=== PATIENT | female | born 1960 | race Caucasian/White ===

== ENCOUNTER 2017-09-12 14:13 | Outpatient (CLI) | payer MEDICAID | END 2017-09-12 14:14 | disposition critical access hospital (66) | LOC: EMS 14:13 | PROVIDERS: ATTEND Surgery | DX: R10.9 Unspecified abdominal pain (principal) | CPT/HCPCS: A0425; A0427 ==

== ENCOUNTER 2017-09-12 14:40 | Emergency (ER) | payer MEDICAID ==
[2017-09-12] MEDS ORDERED: SODIUM CHLORIDE 0.9% 1,000 ML IV ONE (14:51)
[2017-09-12] MEDS ORDERED: KETOROLAC 60 MG/2 ML VIAL IVP STA (14:51)
[2017-09-12] MEDS ORDERED: KETOROLAC 30 MG/ML VIAL ONE (15:08)
--- NOTE | 2017-09-12 15:08 | ED Physician Documentation ---
History of Present Illness - Stated complaint Stated Complaint: LT FLANK PAIN - Additonal information Additional information: hx from pt 57 f hx renal colic recent hematuria passed one stone now acute l flank to R groin pain severe pain diaphoretic given fentanyl by EM with some relief no fever denies preg also hx ovarian cysts Review of Systems Constitutional: denies: Fever Cardiac: denies: Chest pain / pressure GI: reports: Abdominal Pain : reports: Hematuria. denies: Now EGA Musculoskeletal: reports: Back pain Immunocompromised: denies: Immunocompromised PD PAST MEDICAL HISTORY - Present Medications Home Medications: Ambulatory Orders Medication Instructions Recorded Confirmed Citalopram [CeleXA] 1 tab PO DAILY 09/12/17 09/12/17 Estrogens,Esterified [Menest] 1 tab PO DAILY 09/12/17 09/12/17 Progesterone,Micronized 1 cap PO DAILY 09/12/17 09/12/17 [Progesterone] - Allergies Allergies/Adverse Reactions: Allergies Allergy/AdvReac Type Severity Reaction Status Date / Time Penicillins Allergy Anaphylaxis Verified 09/12/17 14:59 Sulfa (Sulfonamide Allergy Anaphylaxis Verified 09/12/17 14:59 Antibiotics) acetaminophen [From Vicodin] AdvReac Unknown Verified 09/12/17 14:59 celecoxib [From Celebrex] AdvReac Unknown Verified 09/12/17 15:01 codeine AdvReac Unknown Verified 09/12/17 15:01 hydrocodone [From Vicodin] AdvReac Unknown Verified 09/12/17 14:59 meperidine [From Demerol] AdvReac Unknown Verified 09/12/17 15:01 PD ED PE NORMAL - Vitals Vital signs reviewed: Yes - Neck Neck: Supple, no meningeal sign - Cardiac Cardiac: RRR - Respiratory Respiratory: No respiratory distress, Clear bilaterally - Abdomen Abdomen: Soft, Non tender - Back Back: No: No CVA TTP (mild left) - Derm Derm: Normal color - Neuro Neuro: Alert and oriented X 3 Results - Vitals Vitals: Vital Signs - 24 hr 09/12/17 09/12/17 14:56 16:49 Temperature 36.1 C L Heart Rate 68 69 Respiratory 16 16 Rate Blood Pressure 152/86 H 110/63 O2 Saturation 96 99 Oxygen O2 Source Room air - Labs Labs: Laboratory Tests 09/12/17 16:20 Urine Color YELLOW Urine Clarity CLEAR Urine pH 7.0 Ur Specific [place] 1.020 Urine Protein NEGATIVE Urine Glucose (UA) NEGATIVE Urine Ketones >=80 H Urine Occult Blood LARGE H Urine Nitrite NEGATIVE Urine Bilirubin NEGATIVE Urine Urobilinogen 0.2 (NORMAL) Ur Leukocyte Esterase NEGATIVE Urine RBC TNTC H Urine WBC 0-3 Ur Squamous Epith Cells FEW Squamous Urine Bacteria None Seen Urine Mucus Few Strands Ur Microscopic Review INDICATED Urine Culture Comments NOT INDICATED - Rads (name of study) CT [facility] Radiology: See rad report (3 mm distal left ureteral stone, other rneal stones up to 6 mm) PD MEDICAL DECISION MAKING - ED course ED course: much better with toradol Departure - Departure Disposition: Home, Self Care Clinical Impression: Renal colic Condition: Good Instructions: ED Stone Renal W Colic Comments: You have a 3 mm kidney stone in the left ureter - this is small enough to pass on its own The urine sample showed blood but no infection Recommend motrin for mild pain and percocet for severe pain (hopefully won't be needed at all since the stone may have passed in the ER) Drink plenty of fluids Filter the urine so you will know when the stones passes - if you have not had the kidney stones tested to see if they are oxalate or calcium stones, please save the s tone for your PMD to send to the lab for testing - based on the result might be able to make diet changes to prevent forming new stones. In the mean time, you still have more stones up in the kidney - up to 6 mm in size - they are not causing symptoms now but might in the future Forms: Activity restrictions
--- NOTE | 2017-09-12 15:50 | CT Preliminary Report ---
Exam: CT ABDOMEN/PELVIS W/O IMPRESSION: 1. Small distal left ureteral stone with mild associated findings. 2. Nonobstructing right renal calculi. 3. Other chronic or incidental findings. [facility] SITE ID: [id number]
--- NOTE | 2017-09-12 15:52 | CT Report ---
EXAM: CT ABDOMEN AND PELVIS (CT KUB) EXAM DATE: 09/12/2017 03:29 PM. CLINICAL HISTORY: Flank pain, hematuria. COMPARISONS: None. TECHNIQUE: Routine axial helical CT imaging was performed through the abdomen and pelvis without IV c ontrast. Reconstructions: Coronal and sagittal. In accordance with CT protocol optimization, one or more of the following dose reduction techniques w ere utilized for this exam: automated exposure control, adjustment of mA and/or KV based on patient s ize, or use of iterative reconstructive technique. FINDINGS: Lung Bases: Minimal atelectasis anteriorly. Otherwise clear. No effusion. Right Kidney/Ureter: Nonobstructive 6 mm upper pole stone. At least 3 additional tiny nonobstructing calcifications in the mid and lower kidney. Otherwise unremarkable. No ureteral stone or hydronephros is. Left Kidney/Ureter: Distal ureteral stone almost at the UVJ measuring about 3 mm, with mild hydrouret er and minimal pelvicaliectasis. Perinephric fat stranding. Otherwise unremarkable. Other Solid Organs: Noncontrast images of the solid organs are grossly unremarkable. Gallbladder/Bile Ducts: Unremarkable. Peritoneal Cavity: No free fluid, free air, or lymphadenopathy. No bowel dilation. Normal appendix. Pelvic Organs: Unremarkable urinary bladder. Lobulated fibroid uterus. Vasculature: Unremarkable. Other: Bilateral spondylolysis of L5. No listhesis. IMPRESSION: 1. Small distal left ureteral stone with mild associated findings. 2. Nonobstructing right renal calculi. 3. Other chronic or incidental findings. [facility] Referring Provider Line: [phone] SITE ID: [id number]
[2017-09-12 16:32] LABS: BILIRUBIN,URINE NEGATIVE (NEGATIVE); UA w/ MICROSCOPIC CHARGE YES
[2017-09-12 16:41] LABS: UR CULTURE IF IND NOT INDICATED; WBC,URINE 0-3 /HPF (0-5)
[2017-09-12 16:50] VITALS: BP 110/63
== END 2017-09-12 18:30 | disposition home or self-care (01) ==
LOC: EDUNIT# → ED 14:40
DX: N20.1 Calculus of ureter (principal)
CPT/HCPCS: 74176; 81001; 81003; 87086; 96374; 99283; 99284

== ENCOUNTER 2019-05-19 08:11 | Outpatient (CLI) | payer BC ==
--- NOTE | 2019-05-19 09:06 | Mammography Report ---
Reason: SCREENING MAMMO Procedure Date: 05/19/2019 Accession Number: [id number] / [id number] Procedure: TAE - Screening Mammo w/Reji CPT Code: FULL RESULT: EXAM: Screening Mammo w/Reji DATE: 05/19/2019 8:57 AM CLINICAL HISTORY: Screening encounter. TECHNIQUE: (B) - Bilateral CC and MLO views were obtained. COMPARISON: 01/30/2015. PARENCHYMAL PATTERN: (F) - The breast(s) demonstrate(s) diffuse fatty replacement. FINDINGS: There are no suspicious masses, calcifications, or areas of distortion. IMPRESSION: Negative examination. BI-RADS category 1. RECOMMENDATION: (ANNUAL) - Recommend routine annual screening mammography. BI-RADS CATEGORY: (1) - Negative. STANDARD QUALIFYING STATEMENTS: 1. This examination was not reviewed with the aid of Computer-Aided Detection (CAD). 2. A negative or benign imaging report should not preclude biopsy if clinically suspicious findings are present. 3. Dense breasts may obscure an underlying neoplasm. 4. This examination was reviewed with the aid of 3D breast imaging (tomosynthesis).
== END 2019-05-19 08:12 | disposition home or self-care (01) ==
LOC: DI 08:11
PROVIDERS: ATTEND Obstetrics & Gynecology
DX: Z00.00 Encounter for general adult medical examination without abnormal findings (principal); Z12.39 Encounter for other screening for malignant neoplasm of breast
CPT/HCPCS: 77063; 77067

== ENCOUNTER 2019-05-19 08:11 | Outpatient (CLI) | payer BC ==
--- NOTE | 2019-05-20 09:12 | DEXA Report ---
Reason: OSTEOPOROSIS SCREENING Procedure Date: 05/19/2019 Accession Number: [id number] / [id number] Procedure: DEX - Dexa Spine and/or Hip CPT Code: FULL RESULT: EXAM: Dexa Spine and/or Hip DATE: 05/19/2019 9:11 AM CLINICAL HISTORY: OSTEOPOROSIS SCREENING TECHNIQUE: Dual energy x-ray absorptiometry (DXA) was performed on a RightSignature System. Regions measured are the AP Spine, femoral neck, and if needed forearm. COMPARISON: None. In accordance with the International Society for Clinical Densitometry (ISCD) guidelines, data from previous exams may be reanalyzed using current recommendations and techniques. This is done to allow a more accurate basis for comparison with the current study. FINDINGS: The data for the lumbar spine is as follows: BMD (g/cm/cm) T-SCORE Z-SCORE REGION L1 0.934 -1.6 -1.2 L2 0.990 -1.8 -1.3 L3 1.111 -0.7 -0.3 L4 1.235 0.3 0.7 TOTAL 1.077 -0.9 -0.4 NOTE: All evaluable vertebrae are used for classification The data for the hip is as follows: BMD (g/cm/cm) T-SCORE Z-SCORE REGION Neck 0.922 -0.8 -0.1 TOTAL 0.947 -0.5 -0.1 NOTE: The femoral neck or total proximal femur, whichever is lowest, is used for classification. IMPRESSION: THE WHO CLASSIFICATION BASED ON THE INTERNATIONAL REFERENCE STANDARD IS NORMAL. THE FRACTURE RISK IS NOT INCREASED. RECOMMENDATION: Patients with diagnosis of osteoporosis or osteopenia should have regular bone mineral density assessment. For those eligible for Medicare, routine testing is allowed once every 2 years. Testing frequency can be increased for patients who have rapidly progressing disease or for those who are receiving medical therapy to restore bone mass. COMMENT: World Health Organization (WHO) definitions for osteoporosis and osteopenia: NORMAL BMD: T-score at -1.0 or higher, fracture risk is low OSTEOPENIA BMD: T-score between -1.0 and -2.5, fracture risk is increased. OSTEOPOROSIS BMD: T-score at -2.5 or lower, fracture risk is high. National Osteoporosis Foundation recommends: 1. Obtain adequate dietary calcium (at least 1200 mg per day) and vitamin D (400-800 international units per day). 2. Participate, as appropriate, in regular weightbearing and muscle-strengthening exercise. 3. Avoid tobacco use and reduce alcohol and caffeine intake. 4. For more detailed information see the website at www.NOF.org.
== END 2019-05-19 08:12 | disposition home or self-care (01) ==
LOC: DI 08:11
PROVIDERS: ATTEND Obstetrics & Gynecology
DX: Z00.00 Encounter for general adult medical examination without abnormal findings (principal); Z13.820 Encounter for screening for osteoporosis
CPT/HCPCS: 77080

== ENCOUNTER 2019-06-01 08:50 | Outpatient (CLI) | payer BC ==
[2019-06-01 09:18] LABS: HGB - HEMOGLOBIN 13.2 g/dL (12.0-16.0); MEAN CORPUSCULAR HEMOGLOBIN 28.4 pg (27.0-31.0); MEAN CORPUSCULAR HGB CONC 32.4 g/dL (32.0-36.0); MEAN CORPUSCULAR VOLUME 87.7 fL (81.0-99.0); MEAN PLATELET VOLUME 11.1 fL (7.9-10.8); RED BLOOD COUNT 4.64 10^6/uL (4.20-5.40); RED CELL DISTRIBUTION WIDTH 13.2 % (12.0-15.0); WHITE BLOOD COUNT 4.7 x10^3/uL (4.8-10.8)
[2019-06-01 09:41] LABS: HB2 TOTAL 13.8 g/dL; HEMOGLOBIN A1C 0.58 g/dL
[2019-06-01 09:42] LABS: ALBUMIN/GLOBULIN RATIO 1.3 (1.0-2.2); ALKALINE PHOSPHATASE 78 IU/L (42-121); ALT ALANINE AMINOTRANSFERASE 11 IU/L (10-60); AST ASPARTATE AMINOTRANSFERASE 14 IU/L (10-42); BILIRUBIN,TOTAL 0.4 mg/dL (0.2-1.0); BUN - BLOOD UREA NITROGEN 21 mg/dL (6-20); CALCIUM 10.1 mg/dL (8.5-10.3); CARBON DIOXIDE - CO2 24 mmol/L (21-32); CHLORIDE 104 mmol/L (101-111); CHOL/HDL RATIO 6.2 (<4.4); CHOLESTEROL 271 mg/dL; CREATININE 0.6 mg/dL (0.4-1.0); GFR - MDRD 103 (>89); GLUCOSE 109 mg/dL (70-100); HDL CHOLESTEROL 44 mg/dL; LDL CHOLESTEROL,CALCULATED 169 mg/dL; LDL/HDL RATIO 3.8 (<4.4); SODIUM 135 mmol/L (135-145); TOTAL PROTEIN 7.1 g/dL (6.7-8.2); VLDL CHOLESTEROL 58 mg/dL
[2019-06-01 11:04] LABS: THYROID STIMULATING HORMONE 2.35 uIU/mL (0.34-5.60)
[2019-06-01 11:06] LABS: FREE T4 (FREE THYROXINE) 0.66 ng/dL (0.58-1.64)
--- NOTE | 2019-06-02 10:16 | Ultrasound Report ---
Reason: PELVIC PAIN, FEMALE, URINARY INCONTINENCE Procedure Date: 06/01/2019 Accession Number: [id number] / [id number] Procedure: US - Pelvic w/Transvaginal CPT Code: FULL RESULT: EXAM: PELVIC ULTRASOUND EXAM DATE: 06/01/2019 09:18 AM. CLINICAL HISTORY: PELVIC PAIN, FEMALE, URINARY INCONTINENCE. COMPARISON: 06/01/2019 10:06 AM. TECHNIQUE: Realtime transabdominal pelvic scan performed to identify the uterus and adnexa and as an overview of other pelvic structures, followed by transvaginal scan to provide greater detail of the uterus and adnexa, with static image documentation. FINDINGS: Uterus: 7.5 x 4.7 x 5.2 cm, volume 95.9 cc. Anteverted position. Normal overall size and echotexture. Masses: Anterior/fundal hypoechoic oval mass consistent with fibroid measuring 3.3 x 2.6 x 3 cm. Endometrium: 4 mm. Evaluation slightly limited by presence of fibroid. Cervix: Multiple simple-appearing nabothian cysts largest measures 1.5 cm. Right Ovary/left Ovary: Neither ovary is visualized either transabdominally or transvaginally. Normal bowel noted within the adnexa bilaterally. Free Fluid: None. Other: None. IMPRESSION: 1. 3.3 cm anterior fundal uterine fibroid. 2. Nonvisualization of the ovaries. 3. Otherwise no specific abnormalities demonstrated. [facility]
== END 2019-06-01 08:51 | disposition home or self-care (01) ==
LOC: DI 08:50
PROVIDERS: ATTEND Obstetrics & Gynecology
DX: Z00.00 Encounter for general adult medical examination without abnormal findings (principal); D25.9 Leiomyoma of uterus, unspecified; Z12.11 Encounter for screening for malignant neoplasm of colon; Z12.4 Encounter for screening for malignant neoplasm of cervix; R10.2 Pelvic and perineal pain; R32 Unspecified urinary incontinence; Z13.1 Encounter for screening for diabetes mellitus
CPT/HCPCS: 36415; 76830; 76856; 80053; 80061; 83036; 83721; 84439; 84443; 85027